=== PATIENT | male | born 1960 | race Caucasian/White ===

== ENCOUNTER → 2021-10-23 | Outpatient (CLI) | payer OTHER ==
[~2021-10-23] MED LIST: ACULAR 3 ML3 M1 OP; CEPHALEXIN500 M1 PO; MOTRIN800 MG PO; NAPROSYN500 MG PO; TOBREX OPHTH S2.5 ML OPH
[2021-10-23 09:36] LABS: BASO # 0.2 10*3/uL (0.0-0.1); BASO % 1.6 % (0.0-1.0); EOS # 0.2 10*3/uL (0.0-0.4); HEMATOCRIT 44.6 % (42.0-52.0); LYMPH # 3.3 10*3/uL (1.3-4.4); MEAN CELL VOLUME 98.9 fl (80.0-94.0); MEAN CORPUSCULAR HGB 34.1 pg (27.0-31.0); MEAN CORPUSCULAR HGB CONC 34.5 g/dl (33.0-37.0); MEAN PLATELET VOLUME 8.4 fl (9.6-12.3); MONO # 0.9 10*3/uL (0.1-1.0); MONO % 9.6 % (3.0-9.0); NEUT # 4.8 10*3/uL (2.3-7.9); NEUT % 51.4 % (47.0-73.0); PLATELET COUNT AUTOMATED 279 10*3/uL (130-400); RED BLOOD COUNT 4.51 10*6/uL (4.50-5.90); RED CELL DISTRI WIDTH 13.1 % (0-14.5); WHITE BLOOD COUNT 9.3 10*3/uL (4.8-10.8)
[2021-10-23 09:38] LABS: BILIRUBIN Negative (Negative); BLOOD 1+ (Negative); CLARITY Clear (Clear); COLOR Yellow (Yellow); GLUCOSE Negative (Negative); KETONE Negative (Negative); LEUKO ESTERASE Negative (Negative); NITRITE Negative (Negative); PH 5.5 (4.5-8.0); UROBILINOGEN 0.2 E.U./dl (0.0-1.0)
[2021-10-23 09:50] LABS: BACTERIA 1+; WBC 0-2 wbc/hpf (0-5)
[2021-10-23 09:53] LABS: ALKALINE PHOSPHATASE 70 U/L (45-117); BUN 11 mg/dl (7-24); CHLORIDE 103 mmol/L (98-107); CHOLESTEROL 150 mg/dL (<200); CREATININE 0.95 mg/dL (0.70-1.30); GAMMA GLUTAMYL TRANSPEPTIDASE 10 U/L (15-85); IRON 112 ug/dL (65-175); LDL CHOLESTEROL 79 mg/dL (9-159); POTASSIUM 4.4 mmol/L (3.5-5.1); SGOT/AST 17 IU/L (3-35); SGPT/ALT 18 U/L (12-78); SODIUM 133 mmol/L (136-145); TOTAL PROTEIN 8.2 gm/dL (6.4-8.2); TRIGLYCERIDES 68 mg/dl (<150)
[2021-10-23 10:57] LABS: FERRITIN 123.9 ng/mL (22.0-322.0)
== END | disposition home or self-care (01) ==
LOC: LAB 09:05
PROVIDERS: ATTEND Family Medicine
DX: E78.5 Hyperlipidemia, unspecified (principal); E55.9 Vitamin D deficiency, unspecified; R79.89 Other specified abnormal findings of blood chemistry; R53.83 Other fatigue; R74.8 Abnormal levels of other serum enzymes

== ENCOUNTER → 2021-11-07 | Outpatient (CLI) | payer OTHER | END | disposition home or self-care (01) | LOC: CT 09:00 | PROVIDERS: ATTEND Family Medicine | DX: I70.0 Atherosclerosis of aorta (principal); R10.84 Generalized abdominal pain ==

== ENCOUNTER 2022-08-21 08:33 | Inpatient (IN) | payer OTHER ==
[~2022-08-21] VITALS: Ht 182.9 cm; Wt 58.7 kg
[2022-08-21 08:47] VITALS: BP 103/69
[2022-08-21 09:37] LABS: HEMATOCRIT 47.8 % (42.0-52.0); MEAN CELL VOLUME 91.9 fl (80.0-94.0); MEAN CORPUSCULAR HGB 33.5 pg (27.0-31.0); MEAN CORPUSCULAR HGB CONC 36.4 g/dl (33.0-37.0); MEAN PLATELET VOLUME 12.6 fl (9.6-12.3); PLATELET COUNT AUTOMATED 36 10*3/uL (130-400); RED CELL DISTRI WIDTH 13.2 % (0-14.5)
[2022-08-21 09:44] LABS: MANUAL DIFF REFLEX YES
[2022-08-21 10:01] LABS: ATYPICAL LYMPHS 13 % (0-0); BURR CELLS FEW; PLATELET SUFFICIENCY LOW (NORMAL); POLYCHROMASIA SLIGHT; TOTAL CELLS COUNTED 100 #CELLS
[2022-08-21 10:38] LABS: POTASSIUM 4.3 mmol/L (3.4-5.1); TOTAL PROTEIN 8.2 gm/dL (6.0-8.0)
[2022-08-21 11:52] LABS: BILIRUBIN Negative (Negative); BLOOD 1+ (Negative); CLARITY Cloudy (Clear); COLOR Yellow (Yellow); GLUCOSE Negative (Negative); KETONE Negative (Negative); LEUKO ESTERASE Negative (Negative); NITRITE Negative (Negative); PH 5.5 (4.5-8.0); UROBILINOGEN 0.2 E.U./dl (0.0-1.0)
[2022-08-21 12:10] LABS: BACTERIA 1+; MUCOUS TRACE; RBC 0-2 rbc/hpf (0-2)
[2022-08-21 13:50] VITALS: BP 107/59
[2022-08-21 14:43] LABS: POTASSIUM 3.7 mmol/L (3.4-5.1)
[2022-08-21 17:17] VITALS: BP 113/62
[2022-08-21 18:12] LABS: POTASSIUM 4.1 mmol/L (3.4-5.1)
[2022-08-21 20:00] VITALS: BP 101/66
[2022-08-21 22:12] LABS: BUN 34 mg/dl (9-23); CHLORIDE 96 mmol/L (98-107); POTASSIUM 3.6 mmol/L (3.4-5.1)
[2022-08-22] VITALS: BP 102/66
[2022-08-22 02:37] LABS: BUN 32 mg/dl (9-23); CHLORIDE 94 mmol/L (98-107); POTASSIUM 3.8 mmol/L (3.4-5.1)
[2022-08-22 05:01] LABS: URINE CHLORIDE, RANDOM < 20 mmol/L
[2022-08-22 06:47] LABS: HEMATOCRIT 43.9 % (42.0-52.0); MEAN CELL VOLUME 91.6 fl (80.0-94.0); MEAN CORPUSCULAR HGB 33.2 pg (27.0-31.0); MEAN CORPUSCULAR HGB CONC 36.2 g/dl (33.0-37.0); MEAN PLATELET VOLUME 12.8 fl (9.6-12.3); PLATELET COUNT AUTOMATED 35 10*3/uL (130-400); RED BLOOD COUNT 4.79 10*6/uL (4.50-5.90); RED CELL DISTRI WIDTH 13.3 % (0-14.5); WHITE BLOOD COUNT 4.5 10*3/uL (4.8-10.8)
[2022-08-22 06:49] LABS: MANUAL DIFF REFLEX YES
[2022-08-22 06:53] LABS: ALKALINE PHOSPHATASE 44 U/L (46-116); BUN 32 mg/dl (9-23); CHLORIDE 95 mmol/L (98-107); CHOLESTEROL 112 mg/dL (<200); POTASSIUM 3.7 mmol/L (3.4-5.1); SGPT/ALT 274 U/L (10-49); TOTAL PROTEIN 6.9 gm/dL (6.0-8.0)
[2022-08-22 07:10] LABS: TRIGLYCERIDES 229 mg/dl (<150)
[2022-08-22 07:11] LABS: LDL CHOLESTEROL 59 mg/dL (9-159)
[2022-08-22 08:00] VITALS: BP 103/56
[2022-08-22 08:12] LABS: ATYPICAL LYMPHS 3 % (0-0); BASOPHILS 1 % (0-1); PLATELET SUFFICIENCY LOW (NORMAL); TOTAL CELLS COUNTED 100 #CELLS
[2022-08-22 12:00] VITALS: BP 103/60
[2022-08-22 16:00] VITALS: BP 108/67
[2022-08-22 20:00] VITALS: BP 100/56
[2022-08-23] VITALS: BP 105/65
[2022-08-23 06:44] LABS: HEMATOCRIT 43.7 % (42.0-52.0); MEAN CELL VOLUME 89.4 fl (80.0-94.0); MEAN CORPUSCULAR HGB 33.5 pg (27.0-31.0); MEAN PLATELET VOLUME 12.6 fl (9.6-12.3); RED BLOOD COUNT 4.89 10*6/uL (4.50-5.90); RED CELL DISTRI WIDTH 13.1 % (0-14.5); WHITE BLOOD COUNT 8.1 10*3/uL (4.8-10.8)
[2022-08-23 06:48] LABS: PLATELET COUNT AUTOMATED 51 10*3/uL (130-400)
[2022-08-23 06:49] LABS: MANUAL DIFF REFLEX YES; MEAN CORPUSCULAR HGB CONC 37.5 g/dl (33.0-37.0)
[2022-08-23 07:22] LABS: ATYPICAL LYMPHS 7 % (0-0); PLATELET SUFFICIENCY LOW (NORMAL); TOTAL CELLS COUNTED 100 #CELLS
[2022-08-23 08:00] VITALS: BP 83/56; BP 90/60
[2022-08-23 08:00] LABS: ALKALINE PHOSPHATASE 44 U/L (46-116); BUN 23 mg/dl (9-23); CHLORIDE 95 mmol/L (98-107); POTASSIUM 3.7 mmol/L (3.4-5.1); SGPT/ALT 182 U/L (10-49); TOTAL PROTEIN 6.8 gm/dL (6.0-8.0)
[2022-08-23 12:00] VITALS: BP 95/62
[2022-08-23 16:00] VITALS: BP 104/66
[2022-08-23 20:00] VITALS: BP 118/62
[2022-08-24] VITALS: BP 105/57
[2022-08-24 06:21] LABS: HEMATOCRIT 41.4 % (42.0-52.0); MEAN CORPUSCULAR HGB 32.7 pg (27.0-31.0); MEAN PLATELET VOLUME 11.9 fl (9.6-12.3); PLATELET COUNT AUTOMATED 61 10*3/uL (130-400); RED BLOOD COUNT 4.55 10*6/uL (4.50-5.90); RED CELL DISTRI WIDTH 13.3 % (0-14.5); WHITE BLOOD COUNT 11.3 10*3/uL (4.8-10.8)
[2022-08-24 06:32] LABS: MANUAL DIFF REFLEX YES
[2022-08-24 07:26] LABS: ATYPICAL LYMPHS 7 % (0-0); TOTAL CELLS COUNTED 100 #CELLS
[2022-08-24 07:33] LABS: PLATELET SUFFICIENCY LOW (NORMAL)
[2022-08-24 08:00] VITALS: BP 102/58
[2022-08-24 08:59] LABS: ALKALINE PHOSPHATASE 40 U/L (46-116); BUN 26 mg/dl (9-23); CHLORIDE 94 mmol/L (98-107); POTASSIUM 3.9 mmol/L (3.4-5.1); SGPT/ALT 119 U/L (10-49); TOTAL PROTEIN 6.9 gm/dL (6.0-8.0)
[2022-08-24 12:00] VITALS: BP 109/63
[2022-08-24 16:00] VITALS: BP 107/61
[2022-08-24 20:00] VITALS: BP 90/50
[2022-08-25] VITALS: BP 89/51
[2022-08-25 05:20] LABS: ALKALINE PHOSPHATASE 40 U/L (46-116); BUN 20 mg/dl (9-23); CHLORIDE 96 mmol/L (98-107); POTASSIUM 3.8 mmol/L (3.4-5.1); SGPT/ALT 82 U/L (10-49); TOTAL PROTEIN 6.4 gm/dL (6.0-8.0)
[2022-08-25 06:40] LABS: HEMATOCRIT 36.6 % (42.0-52.0); MANUAL DIFF REFLEX YES; MEAN CELL VOLUME 92.9 fl (80.0-94.0); MEAN CORPUSCULAR HGB 33.5 pg (27.0-31.0); MEAN CORPUSCULAR HGB CONC 36.1 g/dl (33.0-37.0); MEAN PLATELET VOLUME 12.3 fl (9.6-12.3); PLATELET COUNT AUTOMATED 105 10*3/uL (130-400); RED BLOOD COUNT 3.94 10*6/uL (4.50-5.90); RED CELL DISTRI WIDTH 13.6 % (0-14.5); WHITE BLOOD COUNT 10.5 10*3/uL (4.8-10.8)
[2022-08-25 07:23] LABS: ATYPICAL LYMPHS 8 % (0-0); PLATELET SUFFICIENCY LOW (NORMAL); TOTAL CELLS COUNTED 100 #CELLS
[2022-08-25 07:24] LABS: POLYCHROMASIA SLIGHT; ROULEAUX SLIGHT; TOXIC GRANULATION SLIGHT
[2022-08-25 08:00] VITALS: BP 102/60; BP 106/60
[2022-08-25 12:00] VITALS: BP 99/54
[2022-08-25 16:00] VITALS: BP 98/60
[2022-08-25 20:00] VITALS: BP 115/62
[2022-08-26] VITALS: BP 115/62
[2022-08-26 06:40] LABS: BASO % 0.3 % (0.0-1.0); EOS % 0.1 % (1.0-4.0); HEMATOCRIT 33.7 % (42.0-52.0); LYMPH # 4.3 10*3/uL (1.3-4.4); LYMPH % 45.2 % (27.0-41.0); MEAN CELL VOLUME 92.3 fl (80.0-94.0); MEAN CORPUSCULAR HGB 33.7 pg (27.0-31.0); MEAN CORPUSCULAR HGB CONC 36.5 g/dl (33.0-37.0); MONO # 1.2 10*3/uL (0.1-1.0); MONO % 12.7 % (3.0-9.0); NEUT % 41.3 % (47.0-73.0); RED BLOOD COUNT 3.65 10*6/uL (4.50-5.90); RED CELL DISTRI WIDTH 13.7 % (0-14.5); WHITE BLOOD COUNT 9.6 10*3/uL (4.8-10.8)
[2022-08-26 06:42] LABS: PLATELET COUNT AUTOMATED 234 10*3/uL (130-400)
[2022-08-26 07:01] LABS: BUN 9 mg/dl (9-23); CHLORIDE 99 mmol/L (98-107); POTASSIUM 3.8 mmol/L (3.4-5.1)
[2022-08-26 08:00] VITALS: BP 117/63
[2022-08-26 12:00] VITALS: BP 97/55
[2022-08-26 16:00] VITALS: BP 102/54
[2022-08-26 20:00] VITALS: BP 124/68
[2022-08-27] VITALS: BP 133/59
[2022-08-27 06:22] LABS: HEMATOCRIT 35.4 % (42.0-52.0); MEAN CELL VOLUME 92.4 fl (80.0-94.0); MEAN CORPUSCULAR HGB 33.4 pg (27.0-31.0); MEAN CORPUSCULAR HGB CONC 36.2 g/dl (33.0-37.0); MEAN PLATELET VOLUME 9.9 fl (9.6-12.3); RED BLOOD COUNT 3.83 10*6/uL (4.50-5.90); WHITE BLOOD COUNT 8.4 10*3/uL (4.8-10.8)
[2022-08-27 06:25] LABS: MANUAL DIFF REFLEX YES; PLATELET COUNT AUTOMATED 394 10*3/uL (130-400)
[2022-08-27 06:34] LABS: BUN 6 mg/dl (9-23); CHLORIDE 101 mmol/L (98-107); POTASSIUM 4.1 mmol/L (3.4-5.1)
[2022-08-27 07:14] LABS: ATYPICAL LYMPHS 5 % (0-0); PLATELET SUFFICIENCY NORMAL (NORMAL); POLYCHROMASIA SLIGHT; TARGET CELLS FEW; TOTAL CELLS COUNTED 100 #CELLS
[2022-08-27 08:00] VITALS: BP 116/60
[2022-08-27 12:00] VITALS: BP 105/59
[2022-08-27] MEDS ORDERED: LEVOFLOXACIN750 M2 PO (15:25)
[2022-08-27 16:00] VITALS: BP 107/56
== END 2022-08-27 17:27 | disposition home or self-care (01) | DRG 682 ==
LOC: ED 08:33 → EDHOLD 14:06 → 4E 14:06 → EDHOLD 14:07 → 4E 16:46
PROVIDERS: Emergency Medicine; Internal Medicine; Student in an Organized Health Care Education/Training Program; ADMIT Internal Medicine; ATTEND Internal Medicine
PROC: BD1BYZZ Fluoroscopy of Mouth/Oropharynx using Other Contrast (ICD-10-PCS; principal; 2022-08-26)
DX: N17.0 Acute kidney failure with tubular necrosis (principal); E43 Unspecified severe protein-calorie malnutrition; J18.9 Pneumonia, unspecified organism; E87.1 Hypo-osmolality and hyponatremia; F10.239 Alcohol dependence with withdrawal, unspecified; Z68.1 Body mass index [BMI] 19.9 or less, adult; K52.9 Noninfective gastroenteritis and colitis, unspecified; B34.9 Viral infection, unspecified; G47.00 Insomnia, unspecified; D69.6 Thrombocytopenia, unspecified; R73.9 Hyperglycemia, unspecified; E86.0 Dehydration

== ENCOUNTER 2024-10-02 20:01 | Emergency (ER) | payer OTHER ==
[~2024-10-02] VITALS: Ht 182.8 cm; Wt 65.8 kg
[~2024-10-02 20:01] MED LIST changes: +LEVOFLOXACIN750 M2 PO
== END 2024-10-03 00:39 | disposition short-term general hospital (02) ==
LOC: ED 20:01
DX: T18.5XXA Foreign body in anus and rectum, initial encounter (principal); F17.200 Nicotine dependence, unspecified, uncomplicated; W44.8XXA Other foreign body entering into or through a natural orifice, initial encounter; Y93.89 Activity, other specified; Y92.89 Other specified places as the place of occurrence of the external cause; Y99.8 Other external cause status